=== PATIENT | male | born 1955 | race Hispanic/Latino ===

== ENCOUNTER 2022-08-04 16:25 | Emergency (ER) | payer OTHER, SELFPAY ==
[2022-08-04 16:52] VITALS: BP 167/85; PULSE 89; RESP 16; TEMP 37.1; O2SAT 96
--- NOTE | 2022-08-04 17:22 | ED.URI ---
HPI - URI/Sore Throat General Chief Complaint: Upper Respiratory Infection Stated Complaint: Congestion Source: patient and RN notes reviewed History of Present Illness HPI Narrative: 66 yo M presents to urgent care with complaints congestion, runny nose, cough, and bilateral ear pressure. Patient states he has been having this for approximately 1 month he thought it was going away until approximately 2 weeks ago when he came back with a vengeance. Patient reports productive cough and green and yellow nasal drainage. Patient denies any fevers, chills, vomiting, diarrhea, chest pain, or shortness of breath. Patient has been taking [id number] NyQuil, Flonase, and AIrborne. pt also reporting burning with urination for some time now. Pt denies any abdominal pain. Related Data Home Medications Medication Instructions Recorded Confirmed amlodipine 10 mg tablet mg 08/04/22 atorvastatin 10 mg tablet mg 08/04/22 bupropion HCl 200 mg tablet,12 hr mg PO 08/04/22 sustained-release ezetimibe 10 mg tablet mg 08/04/22 fenofibrate micronized 134 mg mg 08/04/22 capsule fexofenadine 180 mg tablet mg 08/04/22 fluticasone propionate 50 intranasal 08/04/22 mcg/actuation nasal spray,suspension lisinopril 20 mg tablet mg 08/04/22 metformin 1,000 mg tablet mg 08/04/22 metoclopramide HCl 5 mg tablet mg 08/04/22 montelukast 10 mg tablet mg 08/04/22 tamsulosin 0.4 mg capsule mg PO 08/04/22 Allergies Allergy/AdvReac Type Severity Reaction Status Date / Time Contrast Media Allergy Mild Vomiting Uncoded 08/04/22 16:55 Review of Systems Review of Systems: Pertinent positives and pertinent negatives per HPI. PMFSH Comments At the time of my signature, I reviewed and agree with the nursing past medical, surgical, social, and family history. There is no relevant family history pertinent to the patient complaint. Exam Narrative: GENERAL: This is a well-nourished, well-developed patient, in no apparent distress. HEAD: normocephalic, atraumatic. EYES: PERRL. Sclera clear/white. Vision is grossly intact. EARS: External ears normal, auditory canals clear and without drainage, TMs normal without perforation. Hearing grossly intact. NOSE: External nose normal with no obvious nasal discharge, nares without redness, no rhinorrhea. THROAT: Mucous membranes moist, posterior pharynx clear. NECK: Neck supple, non-tender without lymphadenopathy, masses or thyromegaly. CARDIOVASCULAR: Regular rate and rhythm without murmurs, gallops, or rubs. RESPIRATORY: Clear to auscultation. Breath sounds equal bilaterally. No wheezes, rales, or rhonchi. SKIN: warm, intact with no suspicious lesions or rash, good texture and turgor. NEURO: awake, alert, and oriented to person, place and time. There were no obvious focal neurologic abnormalities. Course Course Level of Care: Express Care Visit Vital Signs Vital signs: Vital Signs Temperature 98.7 F 08/04/22 16:52 Pulse Rate 89 08/04/22 16:52 Respiratory Rate 16 08/04/22 16:52 Blood Pressure 167/85 H 08/04/22 16:52 Pulse Oximetry 96 08/04/22 16:52 Oxygen Delivery Room Air 08/04/22 16:52 Temperature 98.7 F 08/04/22 16:52 Pulse Rate 89 08/04/22 16:52 Respiratory Rate 16 08/04/22 16:52 Blood Pressure 167/85 H 08/04/22 16:52 Pulse Oximetry 96 08/04/22 16:52 Oxygen Delivery Room Air 08/04/22 16:52 reviewed. MDM - URI/Sore Throat MDM Narrative Medical decision making narrative: Go to the ER for any new or worsening symptoms. Avoid smoking/second-hand smoke. Continue to take Tylenol or Motrin for pain. Increase your Vitamin C intake. Use a humidifier or vaporizer at night. Take Medications as prescribed. Drink plenty of water. 8-10 glasses per day. Use flonase 2 times per day for 5 days then as needed Take mucinex 2 times per day and be sure to take with 8oz of water. Follow up with Primary provider if not getting better. [place]
== END 2022-08-04 17:30 | disposition home or self-care (01) ==
PROVIDERS: Emergency Provider Nurse Practitioner Family; PCP Internal Medicine
DX: J32.9 Chronic sinusitis, unspecified (principal); R30.0 Dysuria; E78.00 Pure hypercholesterolemia, unspecified; I10 Essential (primary) hypertension; N40.0 Benign prostatic hyperplasia without lower urinary tract symptoms; E11.9 Type 2 diabetes mellitus without complications
CPT/HCPCS: 81003; 87086; 87491; 87591; 87661; 99213; G0463

== ENCOUNTER 2024-08-11 10:06 | Emergency (ER) | payer MEDICARE, SELFPAY ==
[2024-08-11] VITALS (19 sets, daily range): BP systolic 137–153; BP diastolic 77–90; PULSE 65–78; RESP 13–24; TEMP 36.6; O2SAT 94–100
--- NOTE | ~2024-08-11 | XR_ITS ---
XR chest 1V portable Ordering provider: Chip Ledezma MD History: 68 years Male with . HYPERGLYCEMIA . Comparison: None. FINDINGS: MEDIASTINUM: The cardiac silhouette is not enlarged. LUNGS: No infiltrates, effusions or pneumothorax. Prominent bronchovascular markings bilaterally. OTHER: No free air under the diaphragm. Degenerative changes of the spine. IMPRESSION: No acute cardiopulmonary pathology. Reviewed, dictated and finalized at location A.
--- OUTSIDE RECORDS SUMMARY | 2024-08-11 10:09 | XMS_ITS | CONTINUITY OF CARE DOCUMENT ---
Author Name mely boone Address Unknown Organization [facility] Address [address] [place] [address] Phone [phone] Care Team Providers Care Assistant Toddler Teacher Name Role Phone Ramos Recinos MD Unavailable [phone] ERNESTINA RETANA MD Unavailable ERNESTINA RETANA MD Unavailable PROBLEMS Condition Status Date Provider Notes Cardiology examination active Ramos Recinos MD Diabetes mellitus, Type II active Ramos weiss MD HTN essential active Ramos Recinos MD Palpitations active Ramos Recinos MD Anxiety active Ramos Recinos MD Diarrhea active Ramos Recinos MD Abnormal EKG active Ramos Recinos MD Aortic regurgitation, severe active Ramos raphael MD Abnormal nuclear stress test active Ramos raphael MD ENCOUNTERS Date Type Provider Location Encounter Diag nosis - In-person encounter Office Visit Ramos Recinos MD [place] [facility] - In-person encounter Office Visit Ramos Recinos MD [place] [facility] Aortic regurgitation, severeAbnormal nuc lear stress test - In-person encounter Office Visit Ramos Recinos MD [place] [facility] Cardiology examinationDiabetes mellitus, Type IIHTN essentialPalpitationsAnxietyDiarrheaAbnormal EKG VITAL SIGNS Date Observation Value Provider Body Mass Index (Ratio) 28.75 kg/m2 Abena Recinos MD blood pressure, cuff size regular Ta bitha Cardenas blood pressure, diastolic 82 mm[Hg] Ta bitha Cardenas blood pressure, systolic 132 mm[Hg] Tab itha Cardenas oxygen saturation, oximetry 98 % Ursula Cardenas pulse rate 81 /min Ursula Cardenas weight E&M 212 [lb_av] Ursula Cardenas respiratory rate E&M 12 /min Ursula Cardenas height E&M 72 [in_i] Ursula Cardenas Body Mass Index (Ratio) 27.94 kg/m2 Abena Recinos MD blood pressure, cuff size regular Ta bitkenisha Cardenas blood pressure, diastolic 94 mm[Hg] Ta bitha Cardenas blood pressure, systolic 148 mm[Hg] Tab itha Cardenas oxygen saturation, oximetry 98 % Ursula Cardenas pulse rate 84 /min Ursula Cardenas weight E&M 206 [lb_av] Ursula Cardenas respiratory rate E&M 12 /min Ursula Cardenas height E&M 72 [in_i] Ursula Cardenas Body Mass Index (Ratio) 28.18 kg/m2 Abena Recinos MD blood pressure, cuff size regular Kyree bitha Cardenas blood pressure, diastolic 94 mm[Hg] Ta bitha Cardenas blood pressure, systolic 144 mm[Hg] Tab itha Cardenas oxygen saturation, oximetry 96 % Ursula Cardenas respiratory rate E&M 12 /min Ursula Cardenas pulse rate 80 /min Ursula Cardneas weight E&M 207.8 [lb_av] Ursula Cardenas height E&M 72 [in_i] Ursula Cardenas HISTORY OF MEDICATION USE Medication Status Instructions Dates Provider Indications Com ments metformin 1,000 mg tablet active TAKE 1 TABLET BY MOUTH TWICE DAILY 0 Senia Banegas lisinopril 10 mg tablet active Take 1 tablet by mouth every evening 6 Senia Banegas Invokana 100 mg tablet active TAKE ONE TABLET BY MOUTH EVERY DAY FOR DIABETES Ursula Cardenas ezetimibe 10 mg tablet active Ursula Cardenas bupropion HCl 200 mg tablet sustained-release 12 hr active Ursula Cardenas tamsulosin 0.4 mg capsule active Ursula Cardenas metformin 1,000 mg tablet completed - 0 Senia Banegas amlodipine 10 mg tablet active Ursula Cardenas atorvastatin 10 mg tablet active Ursula Cardenas SOCIAL HISTORY Date Observation Value Provider smoking status Never smoker Ramos Recinos MD smoking status Never smoker Ramos Recinos MD number of grandchildren Ramos Recinos MD U kunal Recinos MD smoking status Never smoker Ramos Recinos MD INSURANCE PROVIDERS Payer name Policy type / Coverage type [employer] red libertarian ID [place] MED[place] Medicare [id number] ADVANCE DIRECTIVES Name Date DISCUSSED - NO DECISION MADE TREATMENT PLAN Date Name Performer Cardiology:Will do a n aortic root to better assess. W ill do a RHC to assess pressures Ramos Recinos MD Cardiology:Patient c annot afford PET Stress test. Will instead pursue cardiac cath. Ramos Recinos MD Cardiology:per PCP Ramos Recinos MD Cardiology:Need elyssa painter to fully assess his need for a cath s uspect a cath will need to be done in the future Ramos Recinos MD Cardiology:unchanged N eeds 48 hr holter to further assess his palpitations Ramos Recinos MD Cardiology:Add lisin opril 10mg qnightly for BP T his visit has been a part of the consistent, comprehensive, and ongoing management of the chronic medical condition(s) listed above for the patient. His updated medication list for this problem includes: Lisinopril 20 Mg Tablet (Lisinopril) Lisinopril 10 Mg Tablet (Lisinopril) ..... Take 1 tablet by mouth every day take in the evening Amlodipine 10 Mg Tablet (Amlodipine) BP today: 148/94 P rior BP: 144/94 (11/06/2023) Ramos Recinos MD Cardiology:observed on echo C hamber sizes normal A symptomatic at present Ramos Recinos MD Cardiology: H smooth has baseline EKG abnormalities so we need to do a stress cardiolite to get a meaningful study result Ramos Recinos MD Cardiology: C /o palpitations every night for the last 6 months R ecommend echo, stress cardiolite, holter, bloodwork Ramos Recinos MD Cardiology:per PCP His updated medication list for this problem includes: Invokana 100 Mg Tablet (Canagliflozin) ..... Take one tablet by mouth every day for diabetes Metformin 1,000 Mg Tablet (Metformin) Lisinopril 20 Mg Tablet (Lisinopril) Ramos Recinos MD Cardiology:Elevated today. Will continue to monitor and adjust meds as needed. BP today: 144/94 His updated medication list for this problem includes: Amlodipine 10 Mg Tablet (Amlodipine) Lisinopril 20 Mg Tablet (Lisinopril) Ramos Recinos MD Cardiology Ramos Recinos MD Date Name PROTHROMBIN TIME WIT H INR LIPID PANEL CBC (INCLUDES DIFF/P LT) BASIC METABOLIC PANE L W/EGFR Holter Monitor 48 hr Stress Exercise Card iolite Microalb/Creatinine Urine, Random LIPID PANEL COMPREHENSIVE METABO LIC PANEL, W/EGFR TSH, free T4, total T3 Complete Echo Holter Monitor 48 hr HISTORY OF PROCEDURES Procedure Date Procedure Name Provider Procedure Notes S tatus Complex e/m visit add on Ramos Recinos MD completed Complex e/m visit add on Ramos Recinos MD completed EKG Ramos Rceinos MD completed
--- OUTSIDE RECORDS SUMMARY | 2024-08-11 10:09 | XMS_ITS | Encounter Summary ---
Author Organization [facility] Address [address] [place] [address] Care Team Providers Care Electronic Prepress Technician Name Role Phone Hugo Yao MD Primary Care Provider [phone] Encounter Details Date Type Department Care Team (Late st Contact Info) Description 06/23/2019 Ophth Exam [facility] [address] [place] [address] Jose Akbar MD [address] DEPT OF OPHTHALMOLOGY [place], [place] Social History Tobacco Use Types Packs/Day Years Used Date Smoking Tobacco: Every Day Cigarettes Smokeless Tobacco: Never Alcohol Use Standard Drinks/Week Comments Yes 0 (1 standard drink = 0.6 oz pur e alcohol) 24 beers/week Sex and Gender Information Value Date Recorded Sex Assigned at Not on file 

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
--- NOTE | 2024-08-11 10:31 | ED_ITS ---
HPI - General Adult General Chief complaint: Nausea/Vomiting/Diarrhea Stated complaint: blood sugar above 600 Time Seen by Provider: 08/11/24 10:30 Source: patient and family Mode of arrival: ambulatory Limitations: no limitations History of Present Illness HPI narrative: 68 years old male came to the ED complaining that his blood glucose level today more than 600. Patient is telling me that been feeling thirsty, drinking too much, urinating too much over 1 month, blood glucose daily running 300-400. Today is 600. History of diabetes hypertension hyperlipidemia COPD, smokes cigarettes, smokes marijuana, drink alcohol daily. Last time was seen by his family physician over 6 months ago. Patient denies any fever, chills, nausea, vomiting, abdominal pain. Patient report frequent urination lately, started on antibiotic 2 weeks ago for possible urinary tract infection without any improvement. Related Data Home Medications ?Medication ?Instructions ?Recorded ?Confirmed ?Last Taken ?Type amlodipine 10 mg tablet mg 08/04/22 Unknown History atorvastatin 10 mg tablet mg 08/04/22 Unknown History bupropion HCl 200 mg tablet,12 hr mg PO 08/04/22 Unknown History sustained-release ezetimibe 10 mg tablet mg 08/04/22 Unknown History fenofibrate micronized 134 mg mg 08/04/22 Unknown History capsule fexofenadine 180 mg tablet mg 08/04/22 Unknown History fluticasone propionate 50 intranasal 08/04/22 Unknown History mcg/actuation nasal spray,suspension lisinopril 20 mg tablet mg 08/04/22 Unknown History metformin 1,000 mg tablet mg 08/04/22 Unknown History metoclopramide HCl 5 mg tablet mg 08/04/22 Unknown History montelukast 10 mg tablet mg 08/04/22 Unknown History tamsulosin 0.4 mg capsule mg PO 08/04/22 Unknown History Allergies Allergy/AdvReac Type Severity Reaction Status Date / Time Contrast Media Allergy Mild Vomiting Uncoded 08/04/22 16:55 Review of Systems 2 Review of Systems: All systems reviewed & are unremarkable except as noted in HPI and below Exam 2 Narrative: General appearance: Well-developed, well-nourished Skin: Normal color Head: Normocephalic, nontraumatic Eyes: Clear conjunctiva ENT: Oropharynx normal, ears normal, nose normal Neck: Supple, nontender Chest and respiratory: Airway patent, no respiratory distress, no accessory muscle use Heart: Regular rate/rhythm Abdomen: Soft, nontender, no organomegaly, quiet bowel sounds Vascular: Normal peripheral pulses, normal capillary refill. Musculoskeletal: Normal range of motion, nontender back Neurologic: Alert and oriented ?3, INSURANCE CLERK is normal as tested, no gross motor deficit Course Vital Signs Vital signs: Vital Signs Temperature 36.6 C 08/11/24 10:33 Pulse Rate 78 08/11/24 10:33 Respiratory Rate 18 08/11/24 10:33 Blood Pressure 148/80 H 08/11/24 10:33 Pulse Oximetry 100 08/11/24 10:33 Oxygen Delivery Room Air 08/11/24 10:33 Temperature 36.6 C 08/11/24 13:31 Pulse Rate 73 08/11/24 14:01 Respiratory Rate 15 08/11/24 14:01 Blood Pressure 148/90 H 08/11/24 14:01 Pulse Oximetry 98 08/11/24 14:01 Oxygen Delivery Room Air 08/11/24 11:24 Medical Decision Making [facility] Narrative Medical decision making narrative: Patient presents with hyperglycemia, increased urination weak, increase drinking,, feeling thirsty. Vital signs showing blood pressure 148/80 otherwise within normal limit Physical examination is unremarkable Differential diagnosis hyperglycemia, DKA, electrolyte imbalance, dehydration, urinary tract infection, pneumonia Blood workup today includes CBC, CMP showed WBC OF 7.5, SODIUM 131, POTASSIUM 5.0, GLUCOSE 500, HEMOGLOBIN A1C 13.7, BETA HYDROXYBUTYRATE 2.12, Urinalysis showed URINALYSIS SHOWED NO EVIDENCE OF INFECTION, Chest x-ray showed NO ACUTE ABNORMALITY PATIENT BLOOD GLUCOSE AT THE TIME OF DISCHARGE IS 198, PATIENT IS SCHEDULED TO SEE HIS DOCTOR AFTER TOMORROW FOR DIABETES MEDICINE ADJUSTMENT. CURRENTLY PATIENT FEELING MUCH BETTER, ASYMPTOMATIC. DIAGNOSIS: DIABETIC HYPERGLYCEMIA POORLY CONTROLLED WITH ELEVATED HEMOGLOBIN A1C. THE PT WAS DISCHARGED TO HOME.THE PT,S CONDITION UPON DISCHARGE WAS FAIR,EDUCATION WAS PROVIDED TO THE PT IN REFERENCE TO THE FINAL IMPRESSION,DISCHARGE STUDY RESULTS,TREATMENT,PROGNOSIS AND NEED FOR FOLLOW UP . Differential Diagnosis Differential Diagnosis: As above Medical Records Medical records reviewed: Yes I reviewed the external patient's medical records. Vital Signs Vital Signs: Vital Signs Temperature 36.6 C 08/11/24 10:33 Pulse Rate 78 08/11/24 10:33 Respiratory Rate 18 08/11/24 10:33 Blood Pressure 148/80 H 08/11/24 10:33 Pulse Oximetry 100 08/11/24 10:33 Oxygen Delivery Room Air 08/11/24 10:33 Temperature 36.6 C 08/11/24 13:31 Pulse Rate 73 08/11/24 14:01 Respiratory Rate 15 08/11/24 14:01 Blood Pressure 148/90 H 08/11/24 14:01 Pulse Oximetry 98 08/11/24 14:01 Oxygen Delivery Room Air 08/11/24 11:24 Lab Data Lab results reviewed: Yes I reviewed the patient's lab results. 08/11/24 10:46 08/11/24 10:46 Labs: Lab Results 08/11/24 08/11/24 08/11/24 Range/Units 10:33 10:46 13:52 WBC 7.5 (4.5-10.0) K/mm3 RBC 4.11 L (4.6-6.20) M/mm3 Hgb 13.4 L (14.0-18.0) g/dL Hct 38.6 L (42.0-52.0) % MCV 93.9 (80-100) fl MCH 32.6 (26-34) pg MCHC 34.7 (32-36) g/dl RDW 12.4 (11.5-14.5) % Plt Count 321 (150-375) k/mm3 MPV 11.7 H (7.4-10.4) fl Immature Gran % (Auto) 0.4 (0-0.5) % Neut % (Auto) 71.8 (45.5-73.1) % Lymph % (Auto) 18.0 L (18.3-44.2) % [place] % (Auto) 7.9 (2.6-8.5) % Eos % (Auto) 1.2 (0-4.4) % Baso % (Auto) 0.7 (0.2-1.2) % Lymph # (Auto) 1.34 (0.9-3.2) K/mm3 [place] # (Auto) 0.6 (0.1-0.6) K/mm3 Eos # (Auto) 0.1 (0-0.3) K/mm3 Baso # (Auto) 0.1 (0.0-0.1) K/mm3 Abs Immat Gran (auto) 0.03 (0.00-0.031) K/mm3 Absolute Neuts (auto) 5.4 (1.3-6.7) K/mm3 Absolute Nucleated RBC 0.000 (0.0-0.012) K/mm3 Nucleated RBC % 0.0 (0.0-0.2) % Sodium 131 L (137-145) mmol/L Potassium 5.0 (3.4-5.0) mmol/L Chloride 97 L (98-107) mmol/L Carbon Dioxide 20 L (22-30) mmol/L Anion Gap 14 H (4-12) mmol/L BUN 16 (9-20) mg/dL Creatinine 0.60 L (0.7-1.3) mg/dL Estim Creat Clear Calc Not Reportable Estimated GFR > 60 (59 - ) Glucose 500 H (65-110) mg/dL POC Capillary Glucose 473 H 191 H (65-105) mg/dl Hemoglobin A1c 13.7 H (<5.7) % Calcium 9.7 (8.4-10.2) mg/dL Phosphorus 4.5 (2.5-4.5) mg/dL Magnesium 2.0 (1.6-2.3) mg/dL Total Bilirubin 0.5 (0.2-1.3) mg/dL AST 20 (17-59) U/L ALT 17 (6-50) U/L Alkaline Phosphatase 84 (38-126) U/L Total Protein 7.0 (6.3-8.2) g/dL Albumin 4.4 (3.5-5.1) g/dL Beta-Hydroxybutyrate/Acetoacetate 2.12 H (0.02-0.27) mmol/L Urine Color Yellow (Yellow) Urine Appearance Clear (Clear) Urine pH 5.0 (5.0-9.0) Ur Specific [place] 1.037 H (1.001-1.035) Urine Protein Negative (Negative) mg/dL Urine Glucose (UA) 3+ H (Negative) mg/dL Urine Ketones 1+ H (Negative) mg/dL Ur Blood (Man) Negative (Negative) Urine Nitrate Negative (Negative) Urine Bilirubin Negative (Negative) Urine Urobilinogen 0.2 (<2.0) mg/dL Leukocyte Esterase Rfl Negative (Negative) INEZ/UL ABG Data ABG results: 08/11/24 11:41 VBG pH 7.339 VBG pCO2 43.1 VBG pO2 30.6 L VBG HCO3 22.7 L O2 Delivery Device Room air O2 Liters/Min Not Reportable FiO2 21 Critical Care Time Critical Care Time Critical Care Time: No Discharge Plan Discharge Clinical Impression: Diabetes mellitus with hyperglycemia Patient Disposition: Home Condition: Improved Instructions: Diabetic Hyperglycemia (ED) Additional Instructions: RETURN IF SYMPTOMS ARE WORSENING , CALL YOUR FAMILY PHYSICIAN FOR APPOINTMENT, TAKE TYLENOL NEEDED FOR ACHES AND PAIN, CONTINUE HOME MEDICATIONS. Patient Language: Mexican Prescriptions: No Action atorvastatin 10 mg tablet lisinopril 20 mg tablet fexofenadine 180 mg tablet fenofibrate micronized 134 mg capsule metoclopramide HCl 5 mg tablet tamsulosin 0.4 mg capsule PO amlodipine 10 mg tablet metformin 1,000 mg tablet montelukast 10 mg tablet fluticasone propionate 50 mcg/actuation spray,suspension INTRANASAL bupropion HCl 200 mg tablet sustained-release 12 hr PO ezetimibe 10 mg tablet albuterol sulfate 90 mcg/actuation HFA aerosol inhaler 2 puff inhalation QID PRN (Reason: shortness of breath or wheezing) Qty: 8.5 0RF amoxicillin-pot clavulanate 875-125 mg tablet 1 tablet PO Q12H 10 Days Qty: 20 0RF Follow-up/Referrals: PHYSICIAN NOT ON STAFF,NONSTAFF [Non-Staff] -
[2024-08-11 10:35] LABS: Glucose Point of Care 473 mg/dl (65-105)
--- OUTSIDE RECORDS SUMMARY | 2024-08-11 10:48 | XMS_ITS | CONTINUITY OF CARE DOCUMENT ---
Author Name mely boone Address Unknown Organization [facility] Address [address] [address] [place] [address] Phone [phone] Care Team Providers Care Channel Rougher Name Role Phone Ramos Recinos MD Unavailable ERNESTINA RETANA MD Unavailable ERNESTINA RETANA MD [...] In-person encounter Office Visit Ramos Recinos MD [place] [facility] - In-person encounter Office Visit Ramos Recinos MD [place] [facility] Aortic regurgitation, severeAbnormal nuc lear stress test - In-person encounter Office Visit Ramos Recinos MD [place] [facility] Cardiology examinationDiabetes mellitus, Type IIHTN essentialPalpitationsAnxietyDiarrheaAbnormal [...] Ursula Cardenas pulse rate 80 /min Ursula Cardenas weight E&M 207.8 [lb_av] Ursula Cardenas height [...] number of grandchildren Ramos Recinos MD U knual Recinos MD smoking status Never smoker Ramos Recinos MD INSURANCE PROVIDERS Payer name Policy type / Coverage type [place] red libertarian ID [place] MEDICARE Medicare [id number] ADVANCE DIRECTIVES Name Date DISCUSSED - NO [...] on Ramos Recinos MD completed EKG Ramos Recinos MD completed
--- OUTSIDE RECORDS SUMMARY | 2024-08-11 10:48 | XMS_ITS | Encounter Summary ---
Author Organization [facility] Address [address] [place] [address] Care Team Providers Care Behavioral Consultant Name Role Phone Hugo Yao MD Primary Care Provider [phone] Encounter Details Date Type Department Care Team (Late st Contact Info) Description 06/23/2019 Ophth Exam [facility] [address] [place] [address] Jose Akbar MD [address] DEPT OF OPHTHALMOLOGY [place], [place] Social History Tobacco Use Types Packs/Day Years Used Date Smoking Tobacco: Every Day Cigarettes Smokeless Tobacco: Never Alcohol Use Standard Drinks/Week Comments Yes 0 (1 standard drink = 0.6 oz pur e alcohol) 24 beers/week Sex and Gender Information Value Date Recorded Sex Assigned at Not on file 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
--- OUTSIDE RECORDS SUMMARY | 2024-08-11 10:48 | XMS_ITS | Clinical Summary ---
Author Organization [facility] Address [address] [place] [address] Care Team Providers Care Travel Writer Name Role Phone Hugo Yao MD Primary Care Provider [phone] Source Comments [facility],non-owned Affiliates and Associated Physician Practices is amultiple site organization consisting of ambulatory clinics and hospital sitesin [place], [place], [place] and [place]. This disclosure is being madepursuant to the Care Everywhere program and may not contain all information available regarding this patient. 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 Gender Identity Not on file Sexual Orientation Not on file Last Filed Vital Signs Vital Sign Reading Time Taken Comments Blood Pressure 152/78 07/16/2020 1:07 PM CDT Pulse 67 07/16/2020 1:07 PM CDT Temperature 35.8 C (96.5 F) 07/16/2020 1:07 PM CDT Respiratory Rate 18 06/27/2019 8:15 AM UNDERWRITING INTERN Oxygen Saturation 96% 07/16/2020 1:07 PM CDT [...] POINT OF CARE Routine 06/27/2019 12:19 AM UNDERWRITING INTERN from Last 3 Months or Most Recently Relevant to Health Maintenance Results * (ABNORMAL) GLUCOSE - POINT OF CARE (06/27/2019 12:19 AM UNDERWRITING INTERN) Glucose WB/POC 128(H) 70 - 115 mg/dL 06/27/2019 12:23 AM UNDERWRITING INTERN [facility] Specimen Type Arterial/C apillary 06/27/2019 12:23 AM UNDERWRITING INTERN [facility] Blood BLOOD SPECIMEN / Unknown 06/27/2019 12:19 AM UNDERWRITING INTERN 06/27/2019 12:23 AM UNDERWRITING INTERN Humberto Ruiz DO LAB - POINT OF CARE ORDERABL ES Final Result [facility] [address] [place] [address] from Last 3 Months or Most Recently Relevant to Health Maintenance Insurance [facility] Advance Directives * Full Code (Latest Code Status on File) Date Activated Date Inactivated Comments 06/23/2019 8:09 PM 06/27/2019 3:51 PM Care Teams Travel Writer Relationship Specialty Start Date End Date Hugo Yao MD [address] [place] [id number] PCP - General Internal Medicine 12/19/19
[2024-08-11] MEDS: SODIUM CHLORIDE 0.9% IV 1,000 ML 999 ML IV CONT ×2 (10:51→11:47)
[2024-08-11 10:54] LABS: Basophils Absolute Auto 0.1 K/mm3 (0.0-0.1); Basophils Percent Auto 0.7 % (0.2-1.2); Eosinophils Absolute Auto 0.1 K/mm3 (0-0.3); Eosinophils Percent Auto 1.2 % (0-4.4); Hematocrit 38.6 % (42.0-52.0); Hemoglobin 13.4 g/dL (14.0-18.0); Immature Granulocyte Absolute 0.03 K/mm3 (0.00-0.031); Immature Granulocyte Percent A 0.4 % (0-0.5); Lymphocytes Absolute Auto 1.34 K/mm3 (0.9-3.2); Mean Corpuscular HGB Conc 34.7 g/dl (32-36); Mean Corpuscular Hemoglobin 32.6 pg (26-34); Mean Corpuscular Volume 93.9 fl (80-100); Mean Platelet Volume 11.7 fl (7.4-10.4); Monocytes Absolute Auto 0.6 K/mm3 (0.1-0.6); Monocytes Percent Auto 7.9 % (2.6-8.5); Neutrophils Absolute Auto 5.4 K/mm3 (1.3-6.7); Neutrophils Percent Auto 71.8 % (45.5-73.1); Platelet Count Result 321 k/mm3 (150-375); Red Blood Count 4.11 M/mm3 (4.6-6.20); Red Cell Distribution Width 12.4 % (11.5-14.5); White Blood Count 7.5 K/mm3 (4.5-10.0)
[2024-08-11 10:57] LABS: Add Urine Microscopic? NO; Appearance Urine Clear (Clear); Bilirubin Urine Negative (Negative); Blood Urine Negative (Negative); Color Urine Yellow (Yellow); Glucose Urine UA 3+ mg/dL (Negative); Ketones Urine 1+ mg/dL (Negative); Leukocyte Esterase Ur Negative LEU/UL (Negative); Nitrate Urine Negative (Negative); Protein Urine Negative (Negative); Specific Grav Ur 1.037 (1.001-1.035); Urobilinogen Urine 0.2 mg/dL (<2.0)
[2024-08-11 11:10] LABS: Beta-Hydroxybutyrate/Acetoacetate 2.12 mmol/L (0.02-0.27)
[2024-08-11 11:17] LABS: Alanine Aminotransferase 17 U/L (6-50); Albumin Level 4.4 g/dL (3.5-5.1); Alkaline Phosphatase 84 U/L (38-126); Anion Gap 14 mmol/L (4-12); Aspartate Amino Transferase 20 U/L (17-59); Bilirubin,Total 0.5 mg/dL (0.2-1.3); Blood Urea Nitrogen 16 mg/dL (9-20); Calcium 9.7 mg/dL (8.4-10.2); Carbon Dioxide 20 mmol/L (22-30); Chloride 97 mmol/L (98-107); Estimated Glomerular Filt Rate > 60; Glucose 500 mg/dL (65-110); Phosphorus 4.5 mg/dL (2.5-4.5); Sodium 131 mmol/L (137-145)
[2024-08-11 11:36] LABS: Hemoglobin A1C 13.7 % (<5.7)
[2024-08-11 11:45] LABS: Device ROOM AIR; Fractional Inspired Oxygen 21 %; HCO3 VBG 22.7 mEq/l (24.0-30.0); PCO2 VBG 43.1 mmHg (42.0-48.0); PO2 VBG 30.6 mmHg (35.0-45.0); pH VBG 7.339 (7.300-7.400)
[2024-08-11] MEDS: INSULIN HUMAN REGULAR (*BKC) 100 UNITS/ML 12.1 UNITS IV PUSH (12:00)
[2024-08-11 13:54] LABS: Glucose Point of Care 191 mg/dl (65-105)
--- NOTE | 2024-08-12 09:30 | PCCDE ---
08/12/24 Spoke with patient today. Feeling better and returned to work. Has PCP appt tomorrow. Advised re: OP opportunities. FJ
== END 2024-08-11 15:13 | disposition home or self-care (01) ==
PROVIDERS: Emergency Provider Emergency Medicine; PCP Emergency Medicine
DX: E11.65 Type 2 diabetes mellitus with hyperglycemia (principal); I10 Essential (primary) hypertension; E78.5 Hyperlipidemia, unspecified; J44.9 Chronic obstructive pulmonary disease, unspecified; F17.210 Nicotine dependence, cigarettes, uncomplicated; Z79.899 Other long term (current) drug therapy; Z79.84 Long term (current) use of oral hypoglycemic drugs
CPT/HCPCS: 36415; 71045; 80053; 81003; 82010; 82803; 82948; 83036; 83735; 84100; 85025; 96361; 96374; 96375; 99284; J1815; J7030